=== PATIENT | male | born 1980 | race Two or more races ===

== ENCOUNTER 2017-08-23 12:10 | Inpatient (IN) | payer OTHER ==
[2017-08-23 13:10] VITALS: BMI 25.7
--- NOTE | 2017-08-23 15:45 | HP ---
Admission ROS [facility] Chief Complaint: REHAB TX FOR DRUGS AND ALCOHOL DEPENDENCE Allergies/Adverse Reactions: Allergies Allergy/AdvReac Type Severity Reaction Status Date / Time No Known Allergies Allergy Verified 08/23/17 14:32 History of Present Illness: 36 Y/O H/M WITH A HX OF ALCOHOL,HEROIN,XANAX,CRACK AND MARIJUANA DEPENDENCE SEKING REHAB TX. FIRST TIME HERE. PT REPORTS COMPLETION OF DETOX AT [facility] ON 08/19/17. Exam Limitations: No Limitations - Ebola screening Have you traveled outside of the country in the last 21 days: No Have you had contact with anyone from an Ebola affected area: No Have you been sick,other than usual withdrawal symptoms: No Do you have a fever: No - Review of Systems Constitutional: Changes in sleep, Unintentional Wgt. Loss EENT: reports: Dental Problems (CAVITIES.) Respiratory: reports: No Symptoms reported Cardiac: reports: No Symptoms Reported GI: reports: No Symptoms Reported, Constipated : reports: Frequency Musculoskeletal: reports: Joint Pain (LEFT HAND FRATURE 2 WEEKS AGO. DID NOT FOLLOW UP FOR RECOMMENDED SURGERY CONSULT DUE TO USING DRUGS.), Muscle Pain Integumentary: reports: No Symptoms Reported Neuro: reports: No Symptoms reported Endocrine: reports: No Symptoms Reported Hematology: reports: No Symptoms Reported Psychiatric: reports: Orientated x3, Depressed (NO TREATMENT.) Other Systems: Reviewed and Negative Patient History - Patient Medical History Hx Anemia: No Hx Asthma: No Hx Chronic Obstructive Pulmonary Disease (COPD): No Hx Cardiac Disorders: No Hx Hypertension: No Hx Hypercholesterolemia: No HX Cerebrovascular Accident: No Hx Seizures: No Hx Diabetes: No Hx Gastrointestinal Disorders: No Hx Liver Disease: No Hx Sexually Transmitted Disorders: No (DENIES) Hx Renal Disease (ESRD): No Hx Thyroid Disease: No Hx Human Immunodeficiency Virus (HIV): No (NEGATIVE HX) Hx Hepatitis C: No Hx Depression: Yes (PREVIOUSLY IN TREATMENT) Hx Suicide Attempt: No (DENIES) Hx Bipolar Disorder: No Hx Schizophrenia: No - Patient Surgical History Past Surgical History: Yes Hx Appendectomy: Yes (2015) Anesthesia Reaction: No - PPD History Previous Implant?: Yes Documented Results: Negative w/o proof Implanted On Prior R Admission?: No PPD to be Administered?: Yes - Reproductive History Patient is a Female of Child Bearing Age (11 -55 yrs old): No (MALE) Patient : (N/A) - Smoking Cessation Smoking history: Current every day smoker Have you smoked in the past 12 months: Yes Hx Chewing Tobacco Use: No Initiated information on smoking cessation: Yes 'Breaking Loose' booklet given: 08/23/17 - Substance & Tx. History Hx Alcohol Use: Yes (BEER/VODKA) Hx Substance Use: Yes (HEROIN/CRACK/XANAX/MARIJUANA) Substance Use Type: Alcohol, Cocaine, Heroin, Marijuana, Tranquilizers Hx Substance Use Treatment: Yes (LAST TX AT [facility] DETOX.) - Substances Abused Alcohol Route: Oral Frequency: Daily Amount used: 2 PINTS Age of first use: 12 Date of Last Use: 08/21/17 Alprazolam (Xanax) Route: Oral Frequency: Daily Amount used: 4MG Age of first use: 36 Date of Last Use: 08/20/17 Heroin Route: Inhalation Frequency: Daily Amount used: 1 BAG Age of first use: 36 Date of Last Use: 08/20/17 Crack Route: Smoking Frequency: Daily Amount used: $100 Age of first use: 26 Date of Last Use: 08/21/17 Marijuana/Hashish Route: Smoking Frequency: Daily Amount used: 4 BLUNTS Age of first use: 12 Date of Last Use: 08/16/17 Family Disease History - Family Disease History Family Disease History: Diabetes: Mother, CA: Grandparent (THROAT CANCER- ), Other: Father (HTN) Admission Physical Exam S - Vital Signs Vital Signs: Vital Signs - 24 hr 08/23/17 13:08 Temperature 97.8 F Pulse Rate 65 Respiratory 20 Rate Blood Pressure 125/87 - Physical General Appearance: Yes: Mild Distress, Irritable, Anxious HEENTM: Yes: EOMI, Normocephalic, TIM, Pharynx Normal Respiratory: Yes: Chest Non-Tender, Lungs Clear, Normal Breath Sounds, No Respiratory Distress Neck: Yes: Supple, Trachea in good position Breast: Yes: Breast Exam Deferred Cardiology: Yes: Regular Rhythm, Regular Rate, S1, S2 Abdominal: Yes: Normal Bowel Sounds, Non Tender, Flat, Soft Genitourinary: Yes: Other (N/C) Back: Yes: Within Normal Limits Musculoskeletal: Yes: full range of Motion, Gait Steady Extremities: Yes: Normal Range of Motion, Non-Tender Neurological: Yes: mold cleaner II-XII NML intact, Fully Oriented, Alert, Motor Strength 5/5 Integumentary: Yes: Dry, Warm Lymphatic: Yes: Within Normal Limits - Addiitonal Findings: SLIGHT PROTRUSION OF THE METACARPAL BONE OF LEFT SMALL FINGER. S/P PREVIOUS FRACTURE. - Diagnostic (1) Alcohol dependence with uncomplicated withdrawal Current Visit: Yes Status: Chronic (2) Opioid dependence with withdrawal Current Visit: Yes Status: Chronic (3) Sedative, hypnotic or anxiolytic dependence with withdrawal, uncomplicated Current Visit: Yes Status: Chronic (4) Cocaine dependence, uncomplicated Current Visit: Yes Status: Chronic (5) Cannabis dependence, uncomplicated Current Visit: Yes Status: Chronic (6) Fracture of hand except finger with malunion Current Visit: Yes Status: Chronic Qualifiers: Laterality: left Comment: PREVIOUS FRACTURE OF HAND TWO WEEKS AGO. Cleared for Admission [facility] - Detox or Rehab Claeared for Rehab Admission: Yes S Breath Alcohol Content Breath Alcohol Content: 0 Urine Drug Screen - Results Drug Screen Negative: No Urine Drug Screen Results: THC-Marijuana, WALLACE-Cocaine, BZO-Benzodiazepines, TCA- Tricyclic Antidepress
[2017-08-23] MEDS ORDERED: IBUPROFEN 400 MG TABLET (FP) PO PRN (16:06)
[2017-08-23] MEDS ORDERED: hydrOXYzine PAMOATE 50 MG CAPSULE (FP) PO PRN (16:06)
[2017-08-23] MEDS ORDERED: LOPERAMIDE HCL 2 MG CAPSULE PO PRN (16:06)
[2017-08-23] MEDS ORDERED: MAGNESIUM CITRATE 300 ML BOTTLE PO PRN (16:06)
[2017-08-23] MEDS ORDERED: ACETAMINOPHEN 325 MG TABLET (FP) PO PRN (16:06)
[2017-08-23] MEDS ORDERED: MAGNESIUM HYDROX 2400MG/30ML ORAL SUSPENSION 30 ML CUP PO PRN (16:06)
[2017-08-23] MEDS ORDERED: MAG HYDROX/AL HYDROX/SIMETH 30 ML UNIT-DOSE CUP PO PRN (16:06)
[2017-08-23] MEDS ORDERED: MENTHOL/PHENOL 1 EACH UD MM PRN (16:06)
[2017-08-23] MEDS ORDERED: P-EPHED 60MG/TRIPROLIDI 2.5MG TABLET PO PRN (16:06)
[2017-08-23] MEDS ORDERED: NICOTINE POLACRILEX 4 MG GUM BC PRN (16:06)
[2017-08-23] MEDS ORDERED: guaiFENesin/D-METHORPHAN HB 10 ML UNIT-DOSE CUPS PO PRN (16:06)
--- NOTE | 2017-08-23 17:03 | HP ---
Admission [facility] Allergies/Adverse Reactions: Allergies Allergy/AdvReac Type Severity Reaction Status Date / Time No Known Allergies Allergy Verified 08/23/17 14:32 - Ebola screening Have you traveled outside of the country in the last 21 days: No Have you had contact with anyone from an Ebola affected area: No Have you been sick,other than usual withdrawal symptoms: No Do you have a fever: No Patient History - Patient Medical History Hx Anemia: No Hx Asthma: No Hx Chronic Obstructive Pulmonary Disease (COPD): No Hx Cardiac Disorders: No Hx Hypertension: No Hx Hypercholesterolemia: No HX Cerebrovascular Accident: No Hx Seizures: No Hx Diabetes: No Hx Gastrointestinal Disorders: No Hx Liver Disease: No Hx Sexually Transmitted Disorders: No (DENIES) Hx Renal Disease (ESRD): No Hx Thyroid Disease: No Hx Human Immunodeficiency Virus (HIV): No (NEGATIVE HX) Hx Hepatitis C: No Hx Depression: Yes (PREVIOUSLY IN TREATMENT) Hx Suicide Attempt: No (DENIES) Hx Bipolar Disorder: No Hx Schizophrenia: No - Patient Surgical History Past Surgical History: Yes Hx Appendectomy: Yes (2015) Anesthesia Reaction: No - PPD History Previous Implant?: Yes Documented Results: Negative w/o proof Implanted On Prior [facility] Admission?: No - Reproductive History Patient : (N/A) - Smoking Cessation Smoking history: Current every day smoker Have you smoked in the past 12 months: Yes Hx Chewing Tobacco Use: No Initiated information on smoking cessation: Yes 'Breaking Loose' booklet given: 08/23/17 - Substances Abused Alcohol Route: Oral Frequency: Daily Amount used: 2 PINTS Age of first use: 12 Date of Last Use: 08/21/17 Alprazolam (Xanax) Route: Oral Frequency: Daily Amount used: 4MG Age of first use: 36 Date of Last Use: 08/20/17 Heroin Route: Inhalation Frequency: Daily Amount used: 1 BAG Age of first use: 36 Date of Last Use: 08/20/17 Crack Route: Smoking Frequency: Daily Amount used: $100 Age of first use: 26 Date of Last Use: 08/21/17 Marijuana/Hashish Route: Smoking Frequency: Daily Amount used: 4 BLUNTS Age of first use: 12 Date of Last Use: 08/16/17 Family Disease History - Family Disease History Family Disease History: Diabetes: Mother, CA: Grandparent (THROAT CANCER- ), Other: Father (HTN) Admission Physical Exam [facility] - Vital Signs Vital Signs: Vital Signs - 24 hr 08/23/17 13:08 Temperature 97.8 F Pulse Rate 65 Respiratory 20 Rate Blood Pressure 125/87 - Diagnostic (1) Alcohol dependence with uncomplicated withdrawal Current Visit: Yes Status: Chronic (2) Opioid dependence with withdrawal Current Visit: Yes Status: Chronic (3) Sedative, hypnotic or anxiolytic dependence with withdrawal, uncomplicated Current Visit: Yes Status: Chronic (4) Cocaine dependence, uncomplicated Current Visit: Yes Status: Chronic (5) Cannabis dependence, uncomplicated Current Visit: Yes Status: Chronic (6) Fracture of hand except finger with malunion Current Visit: Yes Status: Chronic Qualifiers: Laterality: left Comment: PREVIOUS FRACTURE OF HAND TWO WEEKS AGO. [facility] Breath Alcohol Content Breath Alcohol Content: 0 Urine Drug Screen - Results Drug Screen Negative: No Urine Drug Screen Results: THC-Marijuana, WALLACE-Cocaine, BZO-Benzodiazepines, TCA- Tricyclic Antidepress Inpatient Rehab Admission - Initial Determination Are CD services needed?: Yes Free of communicable disease: Yes Not in need of hospitalization: Yes - Rehab Admission Criteria Patient is meeting Inpatient Rehab admission criteria:: Yes (RECENTLY OUT OF DETOX AND [facility].)
[2017-08-23] MEDS ORDERED: TUBERCULIN PPD 5 TU/0.1ML VIAL ID ONE (18:17)
[2017-08-23] MEDS: NICOTINE 21 MG/24 HOURS TOPICAL PATCH TD SCH (18:18)
[2017-08-23] MEDS: THIAMINE HCL 100 MG TABLET (FP) PO SCH (21:32)
[2017-08-24 00:30] LABS: URINE APPEARANCE CLEAR; URINE BILIRUBIN NEGATIVE (NEGATIVE); URINE BLOOD NEGATIVE (NEGATIVE); URINE COLOR LT. YELLOW; URINE GLUCOSE (UA) NEGATIVE (NEGATIVE); URINE KETONE NEGATIVE (NEGATIVE); URINE NITRITE NEGATIVE (NEGATIVE); URINE PROTEIN NEGATIVE (NEGATIVE); URINE UROBILINOGEN 0.2 mg/dL (0.2-1.0)
[2017-08-24 09:40] LABS: URINE LEUK ESTERASE Negative (NEGATIVE)
[2017-08-24] MEDS: NICOTINE 21 MG/24 HOURS TOPICAL PATCH TD SCH (10:00)
[2017-08-24] MEDS: PRENATAL VITAMINS W/ FOLIC ACID TABLET (FP) PO SCH (10:00)
[2017-08-24 10:04] LABS: MCH 31.8 pg (25.7-33.7); MEAN CELL VOLUME 93.5 fl (80-96); MEAN PLT VOLUME 10.3 fl (7.5-11.1); PLATELET COUNT 220 K/MM3 (134-434); RDW 12.7 % (11.9-15.9); WHITE BLOOD COUNT 5.8 K/mm3 (4.0-10.0)
[2017-08-24 11:02] LABS: ALBUMIN 3.9 g/dl (3.4-5.0); ALK PHOS 92 U/L (45-117); ANION GAP 11 (8-16); BILIRUBIN,TOTAL 0.8 mg/dL (0.2-1.0); CALCIUM 8.9 mg/dL (8.5-10.1); CO2 27 mmol/L (21-32); CREATININE 0.9 mg/dL (0.7-1.3); GLUCOSE,RANDOM 102 mg/dL (74-106); SGOT/AST 18 U/L (15-37); SGPT/ALT 28 U/L (12-78); TOT PROT 7.5 g/dl (6.4-8.2)
[2017-08-24 13:24] LABS: SICKLE CELL SCREEN NEGATIVE (NEGATIVE)
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
[2017-08-24] MEDS: MIRTAZAPINE 15 MG TABLET (FP) PO SCH (21:18)
[2017-08-24] MEDS: traZODone HCL 50 MG TABLET (FP) PO SCH (21:18)
[2017-08-24] MEDS: THIAMINE HCL 100 MG TABLET (FP) PO SCH (21:18)
--- NOTE | 2017-08-24 21:26 | EKG ---
Test Reason : Blood Pressure : / mmHG Vent. Rate : 067 BPM Atrial Rate : 067 BPM P-R Int : 174 ms QRS Dur : 092 ms QT Int : 374 ms P-R-T Axes : 054 053 048 degrees QTc Int : 395 ms NORMAL SINUS RHYTHM NORMAL ECG NO PREVIOUS ECGS AVAILABLE Confirmed by SOPHIE CHERRY MD ([id number]) on 08/24/2017 9:26:25 PM Referred By: Confirmed By:SOPHIE CHERRY MD
[2017-08-25] MEDS: risperiDONE 0.5 MG TABLET (FP) PO SCH (09:56)
[2017-08-25] MEDS: PRENATAL VITAMINS W/ FOLIC ACID TABLET (FP) PO SCH (09:56)
[2017-08-25] MEDS: NICOTINE 21 MG/24 HOURS TOPICAL PATCH TD SCH (09:57)
[2017-08-25] MEDS: traZODone HCL 50 MG TABLET (FP) PO SCH (21:21)
[2017-08-25] MEDS: THIAMINE HCL 100 MG TABLET (FP) PO SCH (21:21)
[2017-08-25] MEDS: MIRTAZAPINE 15 MG TABLET (FP) PO SCH (21:21)
[2017-08-26] MEDS: NICOTINE 21 MG/24 HOURS TOPICAL PATCH TD SCH (10:04)
[2017-08-26] MEDS: risperiDONE 0.5 MG TABLET (FP) PO SCH (10:05)
[2017-08-26] MEDS: PRENATAL VITAMINS W/ FOLIC ACID TABLET (FP) PO SCH (10:05)
[2017-08-26] MEDS: PSYLLIUM 5.85 GM PACKET PO SCH (14:24)
[2017-08-26] MEDS: THIAMINE HCL 100 MG TABLET (FP) PO SCH (21:24)
[2017-08-26] MEDS: MIRTAZAPINE 15 MG TABLET (FP) PO SCH (21:24)
[2017-08-26] MEDS: traZODone HCL 50 MG TABLET (FP) PO SCH (21:24)
[2017-08-27] MEDS: NICOTINE 21 MG/24 HOURS TOPICAL PATCH TD SCH (10:10)
[2017-08-27] MEDS: PRENATAL VITAMINS W/ FOLIC ACID TABLET (FP) PO SCH (10:11)
[2017-08-27] MEDS: risperiDONE 0.5 MG TABLET (FP) PO SCH (10:11)
[2017-08-27] MEDS: PSYLLIUM 5.85 GM PACKET PO SCH (10:12)
[2017-08-27] MEDS: THIAMINE HCL 100 MG TABLET (FP) PO SCH (21:29)
[2017-08-27] MEDS: MIRTAZAPINE 15 MG TABLET (FP) PO SCH (21:29)
[2017-08-27] MEDS: traZODone HCL 50 MG TABLET (FP) PO SCH (21:29)
[2017-08-28] MEDS: PSYLLIUM 5.85 GM PACKET PO SCH (09:54)
[2017-08-28] MEDS: PRENATAL VITAMINS W/ FOLIC ACID TABLET (FP) PO SCH (09:54)
[2017-08-28] MEDS: risperiDONE 0.5 MG TABLET (FP) PO SCH (09:54)
[2017-08-28] MEDS: NICOTINE 21 MG/24 HOURS TOPICAL PATCH TD SCH (12:35)
[2017-08-28] MEDS: traZODone HCL 50 MG TABLET (FP) PO SCH (21:18)
[2017-08-28] MEDS: MIRTAZAPINE 15 MG TABLET (FP) PO SCH (21:18)
[2017-08-28] MEDS: THIAMINE HCL 100 MG TABLET (FP) PO SCH (21:18)
[2017-08-29] MEDS: PSYLLIUM 5.85 GM PACKET PO SCH (09:54)
[2017-08-29] MEDS: NICOTINE 21 MG/24 HOURS TOPICAL PATCH TD SCH (09:54)
[2017-08-29] MEDS: risperiDONE 0.5 MG TABLET (FP) PO SCH (09:55)
[2017-08-29] MEDS: PRENATAL VITAMINS W/ FOLIC ACID TABLET (FP) PO SCH (09:55)
[2017-08-29] MEDS: MIRTAZAPINE 15 MG TABLET (FP) PO SCH (21:22)
[2017-08-29] MEDS: THIAMINE HCL 100 MG TABLET (FP) PO SCH (21:22)
[2017-08-29] MEDS: traZODone HCL 50 MG TABLET (FP) PO SCH (21:22)
[2017-08-30] MEDS: PSYLLIUM 5.85 GM PACKET PO SCH (09:39)
[2017-08-30] MEDS: risperiDONE 0.5 MG TABLET (FP) PO SCH (09:39)
[2017-08-30] MEDS: PRENATAL VITAMINS W/ FOLIC ACID TABLET (FP) PO SCH (09:39)
[2017-08-30] MEDS: NICOTINE 21 MG/24 HOURS TOPICAL PATCH TD SCH (09:41)
[2017-08-30] MEDS: traZODone HCL 50 MG TABLET (FP) PO SCH (21:26)
[2017-08-30] MEDS: MIRTAZAPINE 15 MG TABLET (FP) PO SCH (21:26)
[2017-08-30] MEDS: THIAMINE HCL 100 MG TABLET (FP) PO SCH (21:26)
[2017-08-31] MEDS: NICOTINE 21 MG/24 HOURS TOPICAL PATCH TD SCH (09:48)
[2017-08-31] MEDS: PRENATAL VITAMINS W/ FOLIC ACID TABLET (FP) PO SCH (09:48)
[2017-08-31] MEDS: risperiDONE 0.5 MG TABLET (FP) PO SCH (09:48)
[2017-08-31] MEDS: PSYLLIUM 5.85 GM PACKET PO SCH (09:50)
[2017-08-31] MEDS: MIRTAZAPINE 15 MG TABLET (FP) PO SCH (21:13)
[2017-08-31] MEDS: THIAMINE HCL 100 MG TABLET (FP) PO SCH (21:13)
[2017-08-31] MEDS: traZODone HCL 50 MG TABLET (FP) PO SCH (21:13)
[2017-09-01] MEDS: PRENATAL VITAMINS W/ FOLIC ACID TABLET (FP) PO SCH (09:53)
[2017-09-01] MEDS: PSYLLIUM 5.85 GM PACKET PO SCH (09:54)
[2017-09-01] MEDS: risperiDONE 0.5 MG TABLET (FP) PO SCH (09:54)
[2017-09-01] MEDS: NICOTINE 21 MG/24 HOURS TOPICAL PATCH TD SCH (09:54)
--- NOTE | 2017-09-01 15:18 | PN ---
[facility] Progress Note (SOAP) Subjective: constipation, metamucil not helpful Objective: 09/01/17 15:17 Vital Signs - 8 hr 09/01/17 07:38 Temperature 97.8 F Pulse Rate 85 Respiratory 18 Rate Blood Pressure 108/72 Laboratory Tests 08/23/17 08/24/17 08/24/17 22:48 06:00 06:00 WBC 5.8 RBC 4.62 Hgb 14.7 Hct 43.2 MCV 93.5 MCH 31.8 MCHC 34.0 RDW 12.7 Plt Count 220 MPV 10.3 Sickle Cell Screen Negative Sodium 138 Potassium 4.1 Chloride 100 Carbon Dioxide 27 Anion Gap 11 BUN 14 Creatinine 0.9 Creat Clearance w eGFR > 60 Random Glucose 102 Calcium 8.9 Total Bilirubin 0.8 AST 18 ALT 28 Alkaline Phosphatase 92 Total Protein 7.5 Albumin 3.9 Urine Color Lt. yellow Urine Appearance Clear Urine pH 7.0 Ur Specific [place] 1.010 Urine Protein Negative Urine Glucose (UA) Negative Urine Ketones Negative Urine Blood Negative Urine Nitrite Negative Urine Bilirubin Negative Urine Urobilinogen 0.2 Ur Leukocyte Esterase Negative RPR Titer 08/24/17 06:00 WBC RBC Hgb Hct MCV MCH MCHC RDW Plt Count MPV Sickle Cell Screen Sodium Potassium Chloride Carbon Dioxide Anion Gap BUN Creatinine Creat Clearance w eGFR Random Glucose Calcium Total Bilirubin AST ALT Alkaline Phosphatase Total Protein Albumin Urine Color Urine Appearance Urine pH Ur Specific [place] Urine Protein Urine Glucose (UA) Urine Ketones Urine Blood Urine Nitrite Urine Bilirubin Urine Urobilinogen Ur Leukocyte Esterase RPR Titer Nonreactive Assessment: 09/01/17 15:17 consitpation 2/2 medications Plan: add colace and senna, fluids, exercise, cont metamucil.
[2017-09-01] MEDS: MIRTAZAPINE 15 MG TABLET (FP) PO SCH (21:11)
[2017-09-01] MEDS: SENNOSIDES 8.6MG TABLET (FP) PO SCH (21:11)
[2017-09-01] MEDS: traZODone HCL 50 MG TABLET (FP) PO SCH (21:11)
[2017-09-01] MEDS: THIAMINE HCL 100 MG TABLET (FP) PO SCH (21:11)
[2017-09-01] MEDS: DOCUSATE SODIUM 100 MG CAPSULE (FP) PO SCH (21:11)
[2017-09-02] MEDS: PRENATAL VITAMINS W/ FOLIC ACID TABLET (FP) PO SCH (10:00)
[2017-09-02] MEDS: NICOTINE 21 MG/24 HOURS TOPICAL PATCH TD SCH (10:00)
[2017-09-02] MEDS: risperiDONE 0.5 MG TABLET (FP) PO SCH (10:00)
[2017-09-02] MEDS: DOCUSATE SODIUM 100 MG CAPSULE (FP) PO SCH (21:14)
[2017-09-02] MEDS: MIRTAZAPINE 15 MG TABLET (FP) PO SCH (21:14)
[2017-09-02] MEDS: THIAMINE HCL 100 MG TABLET (FP) PO SCH (21:14)
[2017-09-02] MEDS: SENNOSIDES 8.6MG TABLET (FP) PO SCH (21:14)
[2017-09-02] MEDS: traZODone HCL 50 MG TABLET (FP) PO SCH (21:14)
[2017-09-03] MEDS: PRENATAL VITAMINS W/ FOLIC ACID TABLET (FP) PO SCH (09:51)
[2017-09-03] MEDS: risperiDONE 0.5 MG TABLET (FP) PO SCH (09:51)
[2017-09-03] MEDS: NICOTINE 21 MG/24 HOURS TOPICAL PATCH TD SCH (09:51)
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
[2017-09-03] MEDS: SENNOSIDES 8.6MG TABLET (FP) PO SCH (21:11)
[2017-09-03] MEDS: DOCUSATE SODIUM 100 MG CAPSULE (FP) PO SCH (21:12)
[2017-09-03] MEDS: MIRTAZAPINE 15 MG TABLET (FP) PO SCH (21:12)
[2017-09-03] MEDS: THIAMINE HCL 100 MG TABLET (FP) PO SCH (21:12)
[2017-09-03] MEDS: traZODone HCL 100 MG TABLET (FP) PO SCH (21:13)
[2017-09-03] MEDS ORDERED: SUVOREXANT 10 MG TABLET PO PRN (22:00)
[2017-09-04] MEDS: PRENATAL VITAMINS W/ FOLIC ACID TABLET (FP) PO SCH (09:50)
[2017-09-04] MEDS: NICOTINE 21 MG/24 HOURS TOPICAL PATCH TD SCH (09:50)
[2017-09-04] MEDS: risperiDONE 1 MG TABLET (FP) PO SCH (09:50)
[2017-09-04] MEDS: DOCUSATE SODIUM 100 MG CAPSULE (FP) PO SCH (21:12)
[2017-09-04] MEDS: traZODone HCL 100 MG TABLET (FP) PO SCH (21:12)
[2017-09-04] MEDS: SENNOSIDES 8.6MG TABLET (FP) PO SCH (21:12)
[2017-09-04] MEDS: MIRTAZAPINE 15 MG TABLET (FP) PO SCH (21:12)
[2017-09-04] MEDS: THIAMINE HCL 100 MG TABLET (FP) PO SCH (21:12)
[2017-09-05] MEDS: risperiDONE 1 MG TABLET (FP) PO SCH (09:50)
[2017-09-05] MEDS: PRENATAL VITAMINS W/ FOLIC ACID TABLET (FP) PO SCH (09:50)
[2017-09-05] MEDS: NICOTINE 21 MG/24 HOURS TOPICAL PATCH TD SCH (09:50)
[2017-09-05] MEDS: traZODone HCL 100 MG TABLET (FP) PO SCH (21:15)
[2017-09-05] MEDS: SENNOSIDES 8.6MG TABLET (FP) PO SCH (21:15)
[2017-09-05] MEDS: MIRTAZAPINE 15 MG TABLET (FP) PO SCH (21:15)
[2017-09-05] MEDS: DOCUSATE SODIUM 100 MG CAPSULE (FP) PO SCH (21:15)
[2017-09-05] MEDS: THIAMINE HCL 100 MG TABLET (FP) PO SCH (21:15)
[2017-09-06 06:53] VITALS: BP 127/75; PULSE 65; TEMP 98
--- NOTE | 2017-09-06 09:22 | PN ---
Psychiatric Progress Note Vital Signs: Vital Signs Period Temp Pulse Resp BP Sys/Garcia Pulse Ox Last 24 Hr 98.0 F 65 16-16 127/75 Date of Session: 09/06/17 Chief Complaint:: discharge visit HPI: Patient is addressing alcohol, opioid, cocaine, nicotine dependence comorbid MDD with psychosis. ROS: WNL Current Medications: Active Medications Generic Name Dose Route Start Last Admin Trade Name Freq PRN Reason Stop Dose Admin Acetaminophen 650 mg 08/23/17 16:06 Tylenol - PO Q4H PRN PAIN Al Hydroxide/Mg Hydroxide 30 ml 08/23/17 16:06 Mylanta Oral Suspension - PO Q6H PRN DYSPEPSIA Docusate Sodium 300 mg 09/01/17 22:00 09/05/17 21:15 Colace - PO 300 mg HS BC Administration Eucalyptus/Menthol/Phenol/Sorbitol 1 each 08/23/17 16:06 Cepastat Lozenge - MM Q4H PRN SORE THROAT Guaifenesin 10 ml 08/23/17 16:06 Robitussin Dm - PO Q6H PRN COUGH Hydroxyzine Pamoate 50 mg 08/23/17 16:06 08/23/17 21:34 Vistaril - PO 50 mg Q4H PRN Administration AGITATION Ibuprofen 400 mg 08/23/17 16:06 08/23/17 21:33 Motrin - PO 400 mg Q6H PRN Administration SEVERE PAIN Loperamide HCl 4 mg 08/23/17 16:06 Imodium - PO Q6H PRN DIARRHEA Magnesium Citrate 300 ml 08/23/17 16:06 09/02/17 10:02 Citroma - PO 300 ml Q48H PRN Administration CONSTIPATION Magnesium Hydroxide 30 ml 08/23/17 16:06 08/26/17 10:40 Milk Of Magnesia - PO 30 ml DAILY PRN Administration CONSTIPATION Mirtazapine 15 mg 08/24/17 22:00 09/05/17 21:15 Remeron - PO 15 mg HS BC Administration Nicotine 21 mg 08/23/17 16:45 09/05/17 09:50 Nicoderm Patch - TD Not Given DAILY BC Nicotine Polacrilex 4 mg 08/23/17 16:06 Nicorette Gum - BC Q2H PRN NICOTINE REPLACEMENT RX Multivit/Folic Acid/Iron 1 tab 08/24/17 10:00 09/05/17 09:50 Vitamins (Sjr) - PO 1 tab DAILY BC Administration Pseudoephedrine/Triprolidine 1 combo 08/23/17 16:06 Actifed - PO TID PRN NASAL CONGESTION Risperidone 1 mg 09/04/17 10:00 09/05/17 09:50 Risperdal - PO 1 mg DAILY BC Administration Senna 2 tab 09/01/17 22:00 09/05/17 21:15 Senna - PO 2 tab HS BC Administration Thiamine HCl 100 mg 08/23/17 22:00 09/05/17 21:15 Vitamin B1 - PO 100 mg HS BC Administration Trazodone HCl 100 mg 09/03/17 22:00 09/05/17 21:15 Desyrel - PO 100 mg HS BC Administration Current Side Effect: No Lab tests ordered: No Lab tests reviewed: Yes Provider note:: Patient has completed today his treatment and met his goals, will continue to address his issues at [facility]. He gained insights into his addistion, understands the negative impact of his use on his major life areas and verbalized his motivations to continue maintain abstinence. Patient respodede well to medication manageement, feels better with Risperdal adjustment, medications well tolerated, scripts provided for 30 days, patient was encouraged to take medications as directed and continue his sobriety , patient is stable for discharge today. Total face to face time:: 25 Mental Status Exam - Mental Status Exam Alert and Oriented to: Time, Place, Person Cognitive Function: Good Patient Appearance: Well Groomed Mood: Hopeful Affect: Appropriate, Mood Congruent Patient Behavior: Appropriate, Cooperative Speech Pattern: Clear Voice Loudness: Normal Thought Process: Intact Thought Disorder: Not Present Hallucinations: Denies Suicidal Ideation: Denies Homicidal Ideation: Denies Insight/Judgement: Fair Sleep: Fair Appetite: Good Muscle strength/Tone: Normal Gait/Station: Normal Psychiatric Treatment Plan - Problem List (1) Alcohol dependence Current Visit: Yes (2) Nicotine dependence Current Visit: Yes (3) Cocaine dependence Current Visit: Yes (4) Opioid dependence Current Visit: Yes (5) MDD (major depressive disorder), recurrent, severe, with psychosis Current Visit: Yes
[2017-09-06] MEDS: PRENATAL VITAMINS W/ FOLIC ACID TABLET (FP) PO SCH (09:53)
[2017-09-06] MEDS: risperiDONE 1 MG TABLET (FP) PO SCH (09:54)
[2017-09-06] MEDS: NICOTINE 21 MG/24 HOURS TOPICAL PATCH TD SCH (09:54)
== END 2017-09-06 10:40 | disposition home or self-care (01) | DRG 772 ==
LOC: YASAS 12:10 → Y5N 15:12
PROVIDERS: ADMIT Psychiatry & Neurology Psychiatry; ATTEND Psychiatry & Neurology Psychiatry
PROC: HZ42ZZZ Group Counseling for Substance Abuse Treatment, Cognitive-Behavioral (ICD-10-PCS; principal; 2017-08-23)
DX: F11.23 Opioid dependence with withdrawal (principal); F13.230 Sedative, hypnotic or anxiolytic dependence with withdrawal, uncomplicated; F10.230 Alcohol dependence with withdrawal, uncomplicated; F14.20 Cocaine dependence, uncomplicated; F12.20 Cannabis dependence, uncomplicated; F17.210 Nicotine dependence, cigarettes, uncomplicated; F33.3 Major depressive disorder, recurrent, severe with psychotic symptoms; S62.9 Unspecified fracture of hand; X58.XXXD Exposure to other specified factors, subsequent encounter
CPT/HCPCS: 36415; 80053; 81003; 85027; 85660; 86593; 93005; 93010; J2794